=== PATIENT | male | born 1985 | race Caucasian/White ===

== ENCOUNTER → 2017-10-26 | Outpatient (REF) | payer OTHER ==
[2017-10-26 09:48] LABS: % NORMAL FORMS < 4 % (>=4); IMMOTILITY 86 %; NON PROGRESSIVE MOTILITY (c) 8 %; PROGRESSIVE MOTILITY (a) 6 % (>=32); SPERM# 280.5 M/Ejac (>=39); TOTAL FUNCTIONAL 0.9 M/Ejac.; TOTAL MOTILITY 14 % (>=40); TOTAL PROGRESSIVE SPERM 18 M/Ejac.
== END ==
LOC: M LAB REF 09:35
PROVIDERS: ATTEND Obstetrics & Gynecology Reproductive Endocrinology
DX: Z31.9 Encounter for procreative management, unspecified (principal)

== ENCOUNTER → 2019-04-09 | Outpatient (CLI) | payer OTHER ==
[2019-04-09 13:23] LABS: HEPATITIS B SURFACE ANTIBODY POSITIVE (POSITIVE); HEPATITIS B SURFACE ANTIGEN NEGATIVE (NEGATIVE); HEPATITIS C VIRUS ABY INDEX 0.1 INDEX (<0.8); HIV 1&2 SCREEN CENTAUR NEGATIVE (NEGATIVE)
== END ==
LOC: M WUC 09:58
PROVIDERS: ATTEND Obstetrics & Gynecology Reproductive Endocrinology
DX: Z31.89 Encounter for other procreative management (principal)

== ENCOUNTER 2022-11-01 17:52 | Emergency (ER) | payer OTHER, BC ==
[~2022-11-01] VITALS: Ht 185.4 cm; Wt 86.4 kg
[2022-11-01] MEDS ORDERED: NS 1,000 ML IV ONE (18:20)
[2022-11-01 18:43] LABS: BASO % 0.2 % (0.0-1.0); EOS # 0.1 10^3/uL (0.0-0.5); EOS % 1.3 % (0.0-3.0); HEMATOCRIT 43.2 % (42.0-52.0); HEMOGLOBIN 14.4 g/dl (13.5-17.5); LYMPH # 0.9 10^3/uL (1.5-5.0); LYMPH % 11.3 % (24.0-44.0); MEAN CORPUSCULAR HEMOGLOBIN 30.6 pg (27.0-33.0); MEAN CORPUSCULAR HGB CONC 33.3 g/dl (32.0-36.5); MEAN CORPUSCULAR VOLUME 91.9 fl (80.0-96.0); MONO # 0.7 10^3/uL (0.0-0.8); MONO % 7.9 % (2.0-8.0); NEUTROPHILS # 6.6 10^3/uL (1.5-8.5); NEUTROPHILS % 78.8 % (36.0-66.0); PLATELET COUNT, AUTOMATED 280 10^3/uL (150-450); WHITE BLOOD COUNT 8.3 10^3/uL (4.0-10.0)
[2022-11-01 19:11] LABS: ETHYL ALCOHOL (ETHANOL) 0.003 % (0.000-0.010); MAGNESIUM LEVEL 1.8 MG/DL (1.8-2.4)
[2022-11-01 19:13] LABS: BLOOD UREA NITROGEN 13 MG/DL (9-23); CALCIUM LEVEL 8.6 MG/DL (8.5-10.1); CARBON DIOXIDE LEVEL 29 MMOL/L (20-31); CHLORIDE LEVEL 102 MMOL/L (98-107); CREATININE FOR GFR 0.84 MG/DL (0.70-1.30); GLOMERULAR FILTRATION RATE > 60.0 (>60); GLUCOSE, FASTING 94 MG/DL (60-100); POTASSIUM SERUM 4.1 MMOL/L (3.5-5.1); SODIUM LEVEL 139 MMOL/L (136-145)
[2022-11-01 19:15] LABS: FREE T4 1.21 NG/DL (0.89-1.76); THYROID STIMULATING HORMONE 1.281 uIU/ML (0.55-4.78)
[2022-11-01 21:04] LABS: AMPHETAMINES LEVEL URINE NEGATIVE (NEGATIVE); BARBITURATES URINE NEGATIVE (NEGATIVE); BENZODIAZEPINES URINE NEGATIVE (NEGATIVE); COCAINE METABOLITE URINE NEGATIVE (NEGATIVE); METHADONE URINE NEGATIVE (NEGATIVE); OPIATES URINE NEGATIVE (NEGATIVE)
[2022-11-01 21:05] LABS: CANNABINOIDS URINE NEGATIVE (NEGATIVE); PHENCYCLIDINE URINE NEGATIVE (NEGATIVE)
[2022-11-01 21:48] VITALS: BP 126/62
== END 2022-11-01 21:51 | disposition home or self-care (01) ==
LOC: EDBD 17:52 → M ED 17:52
DX: R55 Syncope and collapse (principal)

== ENCOUNTER 2023-11-27 00:51 | Emergency (ER) | payer BC, OTHER ==
[~2023-11-27] VITALS: Ht 185.4 cm; Wt 91.2 kg
[2023-11-27 00:53] VITALS: TEMP 97.1
[2023-11-27] MEDS ORDERED: ADENOSINE 6MG 2ML INJECTION As Ordered ONE (01:16)
[2023-11-27] MEDS ORDERED: ONDANSETRON 4MG 2ML VIAL As Ordered ONE (01:18)
[2023-11-27] MEDS ORDERED: ADENOSINE 6MG 2ML INJECTION IV STA ×2 (01:22)
[2023-11-27] MEDS ORDERED: NS 1,000 ML IV ONE (01:25)
[2023-11-27] MEDS ORDERED: ONDANSETRON 4MG 2ML VIAL IV ONE (01:25)
[2023-11-27 01:49] LABS: BASO # 0.1 10^3/uL (0.0-0.2); BASO % 0.5 % (0.0-1.0); EOS # 0.1 10^3/uL (0.0-0.5); EOS % 0.8 % (0.0-3.0); HEMATOCRIT 43.9 % (42.0-52.0); HEMOGLOBIN 15.4 g/dl (13.5-17.5); LYMPH # 2.4 10^3/uL (1.5-5.0); LYMPH % 23.6 % (24.0-44.0); MEAN CORPUSCULAR HEMOGLOBIN 31.2 pg (27.0-33.0); MEAN CORPUSCULAR HGB CONC 35.1 g/dl (32.0-36.5); MEAN CORPUSCULAR VOLUME 88.9 fl (80.0-96.0); MONO # 0.6 10^3/uL (0.0-0.8); MONO % 5.8 % (2.0-8.0); NEUTROPHILS # 7.1 10^3/uL (1.5-8.5); NEUTROPHILS % 68.9 % (36.0-66.0); PLATELET COUNT, AUTOMATED 283 10^3/uL (150-450); RED BLOOD COUNT 4.94 10^6/uL (4.30-6.10); WHITE BLOOD COUNT 10.3 10^3/uL (4.0-10.0)
[2023-11-27 02:29] LABS: BLOOD UREA NITROGEN 13 MG/DL (9-23); CALCIUM LEVEL 8.9 MG/DL (8.5-10.1); CARBON DIOXIDE LEVEL 26 MMOL/L (20-31); CHLORIDE LEVEL 103 MMOL/L (98-107); CREATININE FOR GFR 0.95 MG/DL (0.70-1.30); GLOMERULAR FILTRATION RATE > 60.0 (>60); GLUCOSE, FASTING 120 MG/DL (60-100); MAGNESIUM LEVEL 1.8 MG/DL (1.8-2.4); POTASSIUM SERUM 4.1 MMOL/L (3.5-5.1); SODIUM LEVEL 136 MMOL/L (136-145)
[2023-11-27] MEDS ORDERED: IBUPROFEN 600MG TAB PO ONE (02:40)
[2023-11-27] MEDS ORDERED: METOPROLOL TART 25 MG TABLET PO ONE (03:30)
[2023-11-27] MEDS ORDERED: METO1TAB87 PO (04:33)
[2023-11-27 04:45] VITALS: BP 128/68; O2SAT 97
== END 2023-11-27 04:58 | disposition home or self-care (01) ==
LOC: M ED 00:51
DX: I47.10 Supraventricular tachycardia, unspecified (principal); I45.10 Unspecified right bundle-branch block; F10.10 Alcohol abuse, uncomplicated; Z79.899 Other long term (current) drug therapy
CPT/HCPCS: 80048; 83735; 85025; 93005; 96361; 96374; 99285; J0153; J2405